=== PATIENT | male | born 1965 | race Two or more races ===

== ENCOUNTER 2022-12-15 16:04 | Emergency (ER) | payer OTHER ==
[~2022-12-15] VITALS: Ht 182.9 cm; Wt 134.7 kg
[~2022-12-15 16:04] MED LIST: CIPRO500 MG PO; LIPITOR20 MG; LOPRESSOR25 MG; NORVASC10 MG; PLAVIX75 MG; ZESTRIL2.5 MG
[2022-12-15] MEDS ORDERED: VALSARTAN160 MG PO (16:22)
[2022-12-15] MEDS ORDERED: ROSUVASTATIN CA10 MG PO (16:22)
[2022-12-15] MEDS ORDERED: METFORMIN HCL500 M4 PO (16:22)
[2022-12-15] MEDS ORDERED: FUROSEMIDE40 MG PO (16:22)
[2022-12-15] MEDS ORDERED: NORFLEX100MG PO (17:36)
== END 2022-12-15 18:06 | disposition home or self-care (01) ==
LOC: ER 16:04
DX: M54.89 Other dorsalgia (principal); E11.9 Type 2 diabetes mellitus without complications; Z79.84 Long term (current) use of oral hypoglycemic drugs; I10 Essential (primary) hypertension; Z88.6 Allergy status to analgesic agent

== ENCOUNTER 2023-12-18 18:36 | Emergency (ER) | payer OTHER ==
[~2023-12-18] VITALS: Ht 182.9 cm; Wt 134.3 kg
[~2023-12-18 18:36] MED LIST changes: +FUROSEMIDE40 MG PO; +METFORMIN HCL500 M4 PO; +NORFLEX100MG PO; +ROSUVASTATIN CA10 MG PO; +VALSARTAN160 MG PO
[2023-12-18] MEDS ORDERED: FAMOTIDINE/PF 20 MG/2 ML VIAL IV ONE (20:15)
[2023-12-18 20:49] LABS: HEMATOCRIT 46.7 % (39.0-48.0); HEMOGLOBIN 15.1 g/dL (13-16.00); MEAN CELL VOLUME 83.9 fL (80.0-100.00); MEAN CORPUSCULAR HEMOGLOBIN 27.2 pg (27.00-32.0); MEAN CORPUSCULAR HGB CONC 32.4 g/dl (32.0-36.0); PLATELET COUNT 165 K/uL (150-450); RED BLOOD COUNT 5.56 M/uL (4.00-6.00); RED CELL DISTRIBUTION WIDTH 15.4 % (11.5-14.5)
[2023-12-18 20:49] LABS: PH,URINE 5.5 (5.0-8.0); URINE APPEARANCE Clear; URINE BILIRRUBIN Negative (NEGATIVE); URINE BLOOD Negative; URINE COLOR Yellow; URINE GLUCOSE Negative (NEGATIVE); URINE KETONE Negative (NEGATIVE); URINE LEUKOCYTE Negative; URINE NITRATE Negative; URINE PROTEIN Negative (NEGATIVE)
[2023-12-18 20:53] LABS: URINE BACTERIA 2.5 uL (0.0-1933); URINE EPITHELIAL CELLS 1.3 uL (0.0-38.8); URINE RBC 5.8 uL (0.0-20.8)
[2023-12-18 21:08] LABS: INR 1.05; PARTIAL THROMBOPLASTIN TIME 32.8 SECONDS (22.0-34.0); PROTHROMBIN TIME 11.4 SECONDS (9.0-11.5)
[2023-12-18 21:12] LABS: ALBUMIN 3.8 gm/dL (3.4-5.0); BILIRUBIN TOTAL 0.27 mg/dL (0.3-1.2); CALCIUM 9.2 mg/dL (8.5-10.1); CREATININE SERUM 0.76 mg/dL (0.70-1.30); GFR 105.71; GLOBULINA 3.8 G/DL (2.4-3.5); POTASSIUM 3.96 mEq/L (3.5-5.1); TOTAL PROTEIN 7.6 gm/dL (6.4-8.2)
== END 2023-12-18 22:45 ==
LOC: ER 18:37
PROVIDERS: Nurse Practitioner Family
DX: R07.89 Other chest pain (principal); Z88.6 Allergy status to analgesic agent; E11.9 Type 2 diabetes mellitus without complications; Z79.84 Long term (current) use of oral hypoglycemic drugs; I10 Essential (primary) hypertension; G47.30 Sleep apnea, unspecified